=== PATIENT | male | born 1955 | race Two or more races ===

== ENCOUNTER 2019-10-28 17:01 | Emergency (ER) | payer BC ==
[~2019-10-28] VITALS: Ht 165.1 cm; Wt 88.5 kg
[2019-10-28 17:34] VITALS: BP 166/91
== END 2019-10-28 17:43 | disposition home or self-care (01) ==
LOC: ER 17:01
DX: R00.2 Palpitations (principal); I10 Essential (primary) hypertension
CPT/HCPCS: 93005

== ENCOUNTER 2021-12-11 08:05 | Emergency (ER) | payer OTHER ==
[~2021-12-11] VITALS: Ht 165.1 cm; Wt 89.4 kg
[2021-12-11] MEDS ORDERED: methylPREDNISolone SOD SUCC 125 MG/2 ML VL IV ONE (08:45)
[2021-12-11 08:57] LABS: Urine WBC None Seen /hpf (0 - 3)
[2021-12-11 09:09] LABS: Basophils # (auto) 0.1 10 ^3/uL (0-0.2); Basophils % (auto) 0.8 % (0.0-2.0); Eosinophils # (auto) 0.1 10 ^3/uL (0-0.8); Eosinophils % (auto) 1.8 % (0.0-7.0); Hematocrit 43.4 % (41.0-53.0); Hemoglobin 15.3 g/dL (13.5-17.5); Lymphocytes # (auto) 1.6 10 ^3/uL (0.4-5.4); Lymphocytes % (auto) 22.6 % (10.0-50.0); Mean Corpuscular Hemoglobin 29.8 pg (28.0-32.0); Mean Corpuscular Hgb Conc. 35.3 g/dL (32.0-36.0); Mean Corpuscular Volume 84.4 fL (80.0-100.0); Monocytes # (auto) 0.7 10 ^3/uL (0-1.3); Monocytes % (auto) 9.8 % (0.0-12.0); Neutrophils # (auto) 4.6 10 ^3/uL (1.6-8.6); Nucleated Red Blood Cells % 0.1 %; Red Blood Cells 5.14 10^6/uL (4.5-5.90)
[2021-12-11 09:15] LABS: Urine Bacteria NONE SEEN /hpf (None Seen); Urine Blood Negative /uL (Negative); Urine Specific Gravity 1.004 (1.001-1.035)
[2021-12-11 10:16] LABS: Potassium 3.3 mmol/L (3.5-5.1)
[2021-12-11 10:26] LABS: Albumin 3.7 g/dL (3.4-5.0); Calcium 8.6 mg/dL (8.5-10.1); Magnesium 2.2 mg/dL (1.6-2.6)
[2021-12-11 10:28] LABS: BUN/Creatinine Ratio 7.9; Bilirubin, Total 0.6 mg/dL (0.2-1.0); Total Protein 7.4 g/dL (6.4-8.2)
[2021-12-11] MEDS ORDERED: POTASSIUM EFFERVESENT TAB 25 MEQ PO ONE (12:00)
[2021-12-11] MEDS ORDERED: MECL1TAB42 PO (15:57)
[2021-12-11 16:09] VITALS: BP 124/75
== END 2021-12-11 15:54 | disposition home or self-care (01) ==
LOC: ER 08:05
DX: H81.10 Benign paroxysmal vertigo, unspecified ear (principal)
CPT/HCPCS: 36415; 71046; 80053; 81001; 83735; 84443; 84484; 85025; 93005

== ENCOUNTER 2024-12-25 10:21 | Inpatient (IN) | payer OTHER ==
[~2024-12-25] VITALS: Ht 165.1 cm; Wt 88.2 kg
[~2024-12-25 10:21] MED LIST: MECL1TAB42 PO
--- NOTE | 2024-12-25 10:39 | ECG ---
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
--- NOTE | 2024-12-25 10:53 | ED.PDOC ---
GI ASSESSMENT HPI Comments 69 y.o male with PMHx of HTN, Gastritis, colitis, GERD, and BPH, presents to the ED for a chief complaint of left sided abdominal pain with intermittent episodes of diarrhea. Patient reports ongoing abdominal pain due to his gastrointestinal diagnoses but states for the past 3 days, he has experienced increased and worsening pain that went from a 3/10 to an 8/10 on the pain scale. Patient reports some nausea, vomiting and diarrhea a couple days ago but denies any recent episodes. Patient also denies fever, chills, bloody stool, or recent abdominal trauma. He denies substance, alcohol or tobacco use. Chief Complaint: Abdominal Pain Time Seen by MD: 10:41 Primary Care Provider: REJI Reviewed Notes: Nurses Notes, Medications, Allergies Allergies: Coded Allergies: NO KNOWN ALLERGIES (Unverified , 11/10/15) Home Meds Active Scripts Meclizine HCl (Meclizine 25) 25 Mg Tab, 25 MG PO TID for 10 Days, #30 TAB Prov:KATIA OWEN MD 12/11/21 Information Source: Patient Mode of Arrival: Ambulatory Timing: Days (3) Duration: Since onset Quality: Aching, Sharp Vomitus: None Stool: Loose Severity: Moderate Recent: None Recent Hx of: None Pain Location: LUQ, LLQ Modifying Factors: Nothing Associated sign and symptoms: Abdominal Pain Past Medical History PAST MEDICAL HISTORY: GERD, HTN Past Medical History (Other): Gastritis, colitis, BPH Surgical History: Denies all surgeries Family History Family History: Family hx of heart jac Family History (Other): Alzheimers Social History Smoker: Non-Smoker Alcohol: Denies ETOH Use Drugs: Denies Drug Use Lives In: Home Constitutional: denies: chills, diaphoresis, fatigue, fever, malaise, sweats, weakness, others EENTM: denies: blurred vision, double vision, ear bleeding, ear discharge, ear drainage, ear pain, ear ringing, eye pain, eye redness, hearing loss, mouth pain, mouth swelling, nasal discharge, nose bleeding, nose congestion, nose pain, photophobia, tearing, throat pain, throat swelling, voice changes, others Respiratory: denies: cough, hemoptysis, orthopnea, SOB at rest, shortness of breath, SOB with excertion, stridor, wheezing, others Cardiovascular: denies: chest pain, dizzy spells, diaphoresis, Dyspnea on exertion, edema, irregular heart beat, left arm pain, lightheadedness, palpitations, PND, syncope, others Gastrointestinal: reports: abdominal pain, diarrhea; denies: abdomen distended, blood streaked bowels, constipated, dysphagia, difficulty swallowing, hematemesis, melena, nausea, poor appetite, poor fluid intake, rectal bleeding, rectal pain, vomiting, others Genitourinary: denies: burning, dysuria, flank pain, frequency, hematuria, incontinence, penile discharge, penile sore, pain, testicle pain, testicle swelling, urgency, others Neurological: denies: dizziness, fainting, headache, left sided numbness, left sided weakness, numbness, paresthesia, pre-existing deficit, right sided numbness, right sided weakness, seizure, speech problems, tingling, tremors, weakness, others Musculoskeletal: denies: back pain, gout, joint pain, joint swelling, muscle pa in, muscle stiffness, neck pain, others Integumetry: denies: bruises, change in color, change in hair/nails, dryness, laceration, lesions, lumps, rash, wounds, others Allergic/Immunocompromised: denies: Difficulty Healing, Frequent Infections, Hives, Itching, others Hematologic/Lymphatic: denies: anemia, blood clots, easy bleeding, easy bruising, swollen glands, others Endocrine: denies: excessive hunger, excessive sweating, excessive thirst, excessive urination, flushing, intolerance to cold, intolerance to heat, unexplained weight gain, unexplained weight loss, others Psychiatric: denies: anxiety, bipolar disorder, depression, hopeless, panic disorder, schizophrenia, sleepless, suicidal, others All Other Systems: Reviewed and Negative Physical Exam General Appearance: Moderate Distress, Obese HEENT: Normal ENT Inspection, Pharynx Normal, TMs Normal Neck: Full Range of Motion, Non-Tender, Normal, Normal Inspection Respiratory: Chest Non-Tender, Lungs Clear, No Accessory Muscle Use, No Respiratory Distress, Normal Breath Sounds Cardiovascular: No Edema, No JVD, No Murmur, No Gallop, Normal Peripheral Pulses, Regular Rate/Rhythm Breast Exam: Deferred Gastrointestinal: LLQ, No Organomegaly, No Pulsatile Mass, Normal Bowel Sounds, Soft, Tenderness Genitalia: Deferred Pelvic: Deferred Rectal: Deferred Extremities: No calf tenderness, Normal capillary refill, Normal inspection, Normal range of motion, Non-tender, No pedal edema Musculoskeletal : Apperance: Normal Neurologic: Alert, kiss mixer II-XII nml as Tested, No Motor Deficits, Normal Affect, Normal Mood, No Sensory Deficits Cerebellar Function: Normal Reflexes: Normal Skin: Dry, Normal Color, Warm Lymphatic: No Adenopathy EKG EKG : Pulse Rate (adult): 86 Cardiac Rhythm: NSR Was a procedure done? Was a procedure done?: No GI differential Dx Differential Diagnosis: Diverticular disease, Esophagitis, Gastroenteritis, Inflammatory BD, Dehydration, Electrolyte Imbalance, Viral X-Ray, Labs, Meds, VS Vital Signs Date Time Temp Pulse Resp B/P (MAP) Pulse Ox O2 Delivery O2 Flow Rate FiO2 12/25/24 10:53 83 16 96 Room Air 12/25/24 10:53 97.9 83 16 136/96 (109) 96 97.9 12/25/24 10:53 83 12/25/24 10:34 97.6 86 18 134/78 (96) 98 97.6 12/25/24 10:31 86 Lab Test 12/25/24 11:14 12/25/24 10:31 Range/Units White Blood Count 6.6 4.4-10.8 10^3/uL Red Blood Count 5.34 4.5-5.90 10^6/uL Hemoglobin 16.0 13.5-17.5 g/dL Hematocrit 45.4 41.0-53.0 % Mean Corpuscular Volume 85.1 80.0-100.0 fL Mean Corpuscular Hemoglobin 30.0 28.0-32.0 pg Mean Corpuscular Hemoglobin Concent 35.2 32.0-36.0 g/dL Red Cell Distribution Width 13.0 11.8-14.3 % Platelet Count 212 140-450 10^3/uL Mean Platelet Volume 7.8 6.9-10.8 fL Neutrophils (%) (Auto) 80.5 H 37.0-80.0 % Lymphocytes (%) (Auto) 10.3 10.0-50.0 % Monocytes (%) (Auto) 8.1 0.0-12.0 % Eosinophils (%) (Auto) 0.7 0.0-7.0 % Basophils (%) (Auto) 0.4 0.0-2.0 % Neutrophils # (Auto) 5.3 1.6-8.6 10 ^3/uL Lymphocytes # (Auto) 0.7 0.4-5.4 10 ^3/uL Monocytes # (Auto) 0.5 0-1.3 10 ^3/uL Eosinophils # (Auto) 0 0-0.8 10 ^3/uL Basophils # (Auto) 0 0-0.2 10 ^3/uL Nucleated Red Blood Cells 0.0 % Sodium Level 136 136-145 mmol/L Potassium Level 3.2 L 3.5-5.1 mmol/L Chloride Level 97 L 98-107 mmol/L Carbon Dioxide Level 30 20-31 mmol/L Anion Gap 9 5-15 Blood Urea Nitrogen 6 L 9-23 mg/dL Creatinine 0.86 0.700-1.30 mg/dL Glomerular Filtration Rate Calc 94 >90 mL/min BUN/Creatinine Ratio 7.0 L 10.0-20.0 Serum Glucose 191 H 74-106 mg/dL Calcium Level 9.5 8.7-10.4 mg/dL Total Bilirubin 3.1 H 0.2-1.0 mg/dL Aspartate Amino Transferase (AST) 517 H 13-40 U/L Alanine Aminotransferase (ALT) 433 H 7-40 U/L Alkaline Phosphatase 137 H 46-116 U/L Total Protein 6.8 5.7-8.2 g/dL Albumin 4.4 3.2-4.8 g/dL Lipase Pending Urine Color Yellow Yellow Urine Clarity Clear Clear Urine pH 8.5 5.0-9.0 Urine Specific [place] 1.012 1.001-1.035 Urine Protein Negative Negative Urine Ketones Negative Negative Urine Blood Negative Negative /uL Urine Nitrite Negative Negative Urine Bilirubin Negative Negative Urine Urobilinogen Normal Negative mg/dL Urine Leukocyte Esterase Negative Negative /uL Urine RBC <1 0 - 3 /hpf Urine Microscopic WBC 0-3 /HPF Urine Squamous Epithelial Cells None seen <5 /hpf Urine Bacteria None seen None Seen /hpf Urine Glucose 1+ H Normal mg/dL Scan of the abdomen and pelvis is negative The liver enzymes are all elevated as well as a total bilirubin of 3.1 The lipase is pending The CBC is within normal limits. The potassium is somewhat decreased at 3.2 The patient will be admitted with a diagnosis of abdominal pain unknown etiology The liver enzymes are also elevated The patient is admitted at this time Images Reviewed?: Images reviewed and evaluated by me Time of 1ST Reevaluation: 10:53 Reevaluation 1ST: Unchanged Patient Education/Counseling: Diagnosis, Treatment, Prognosis Family Education/Counseling: No Family Present Departure 1 Departure Time of Disposition: 12:15 Impression: Primary Impression: Intractable abdominal pain Additional Impressions: Elevated liver enzymes Hypokalemia Abdominal pain of unknown etiology Disposition: ADMITTED INPATIENT Admit to: Med Surg Condition: Fair Critical Care Note Critical Care Time?: No Stability Stability form required: Yes Unstable for transfer: ED Physician Assesment (Clinical assesment) Heart Score Heart Score: Heart Score Response (Comments) Value History N/A 0 EKG N/A 0 Age N/A 0 Risk Factors N/A 0 Troponin N/A 0 Total 0 I personally scribed for PENNY YEPEZ MD ([email or web address]) on 12/25/24 at 10:53. Electronically submitted by Genoveva Jones ([facility]). PENNY YEPEZ MD December 25, 2024 10:53
[2024-12-25 11:02] LABS: Urine Bacteria None Seen /hpf (None Seen)
[2024-12-25 11:39] LABS: Urine Blood Negative /uL (Negative); Urine Clarity Clear (Clear); Urine Color Yellow (Yellow); Urine Protein, UAD Negative (Negative); Urine Specific Gravity 1.012 (1.001-1.035); Urine Squamous Epithelial Cell None Seen /hpf (<5); Urine Urobilinogen Normal (Negative); Urine pH 8.5 (5.0-9.0)
--- NOTE | 2024-12-25 11:44 | DVH ---
CT CT AB PEL WO CON-NO ORAL OR IV INDICATION: llq pain EXAM DATE: 12/25/2024 10:59 AM COMPARISON: None RADIATION DOSE: CTDIvol: 14.88 mGy, DLP: 866.67 mGy*cm PROCEDURE: Helical CT images were obtained of the abdomen and pelvis without IV contrast Sagittal and coronal reconstructions are provided. ORAL CONTRAST: None. ADDITIONAL IMAGES / REFORMATS: None All C T scans at this medical facility are performed using dose modulation techniques as appropriate to a p erformed exam including the following: Automated exposure control was utilized; adjustment of the MA and/or KV according to patient size; and use of iterative reconstruction technique. FINDINGS: LUNG BASE: Normal. LIVER: Normal. GALLBLADDER AND BILIARY TREE: No calcified gallstones. Normal caliber wall. No intra- or extrahepatic biliary ductal dilation. PANCREAS: Normal. SPLEEN: Normal. BOWEL: Normal. Normal appendix. ADRENALS: Normal. KIDNEYS AND URETER: Normal. BLADDER: Normal. REPRODUCTIVE ORGANS: Normal. LYMPH NODES:No lymphadenopathy. PERITONEUM: No ascites or free air. No other fluid collection. VESSELS: Scattered atherosclerotic calcifications are noted. RETROPERITONEUM: Normal. ABDOMINAL WALL: Normal. BONES: Scattered osseous degenerative changes are noted. IMPRESSION: No acute intraabdominal abnormality.
[2024-12-25 11:46] LABS: Basophils # (auto) 0 10 ^3/uL (0-0.2); Basophils % (auto) 0.4 % (0.0-2.0); Eosinophils # (auto) 0 10 ^3/uL (0-0.8); Eosinophils % (auto) 0.7 % (0.0-7.0); Hematocrit 45.4 % (41.0-53.0); Lymphocytes # (auto) 0.7 10 ^3/uL (0.4-5.4); Lymphocytes % (auto) 10.3 % (10.0-50.0); Mean Corpuscular Hgb Conc. 35.2 g/dL (32.0-36.0); Mean Corpuscular Volume 85.1 fL (80.0-100.0); Monocytes # (auto) 0.5 10 ^3/uL (0-1.3); Monocytes % (auto) 8.1 % (0.0-12.0); Neutrophils # (auto) 5.3 10 ^3/uL (1.6-8.6); Neutrophils % (auto) 80.5 % (37.0-80.0); Platelet Count (auto) 212 10^3/uL (140-450); Red Blood Cells 5.34 10^6/uL (4.5-5.90); White Blood Cell 6.6 10^3/uL (4.4-10.8)
[2024-12-25 12:03] LABS: Albumin 4.4 g/dL (3.2-4.8); Anion Gap 9 (5-15); Calcium 9.5 mg/dL (8.7-10.4); Carbon Dioxide 30 mmol/L (20-31); Sodium 136 mmol/L (136-145); Total Protein 6.8 g/dL (5.7-8.2)
[2024-12-25 12:04] LABS: Alanine Aminotransferase 433 U/L (7-40); Alkaline Phosphatase 137 U/L (46-116); Aspartate Aminotransferase 517 U/L (13-40); Bilirubin, Total 3.1 mg/dL (0.2-1.0); Blood Urea Nitrogen 6 mg/dL (9-23); Chloride 97 mmol/L (98-107); Glucose 191 mg/dL (74-106); Potassium 3.2 mmol/L (3.5-5.1)
[2024-12-25 12:19] LABS: Lipase 41 U/L (12-53)
--- NOTE | 2024-12-25 16:08 | DVHHP2 ---
Admitting Diagnosis: Abdominal pain History of Present Illness 69 y.o male with PMHx of HTN, Gastritis, colitis, GERD, and BPH, presents to the ED for a chief complaint of left sided abdominal pain with intermittent episodes of diarrhea. Patient reports ongoing abdominal pain due to his gastrointestinal diagnoses but states for the past 3 days, he has experienced increased and worsening pain that went from a 3/10 to an 8/10 on the pain scale. Patient reports some nausea, vomiting and diarrhea a couple days ago but denies any recent episodes. Patient also denies fever, chills, bloody stool, or recent abdominal trauma. He denies substance, alcohol or tobacco use. PAST MEDICAL HISTORY: GERD, HTN Past Medical History (Other): Gastritis, colitis, BPH Surgical History: Denies all surgeries Family History Family History: Family hx of heart jac Family History (Other): Alzheimers Social History Smoker: Non-Smoker Alcohol: Denies ETOH Use Drugs: Denies Drug Use Lives In: Home Allergies: Coded Allergies: NO KNOWN ALLERGIES (Unverified , 11/10/15) Home Meds Active Scripts Meclizine HCl (Meclizine 25) 25 Mg Tab, 25 MG PO TID for 10 Days, #30 TAB Prov:KATIA OWEN MD 12/11/21 Vital Signs Vital Signs Date Time Temp Pulse Resp B/P (MAP) Pulse Ox O2 Delivery O2 Flow Rate FiO2 12/25/24 15:31 97.7 82 16 143/92 (109) 98 97.7 12/25/24 10:53 Room Air Physical Exam Generally 61 years old male overweight, sitting on chair. No apparent distress HEENT-atraumatic, normocephalic Heart-regular rate and rhythm Lungs clear to auscultate bilaterally Abdomen soft nontender nondistended Musculoskeletal-no edema cyanosis Neuro-AO x3, no focal Results Labs Test 12/25/24 11:14 12/25/24 10:31 Range/Units White Blood Count 6.6 4.4-10.8 10^3/uL Red Blood Count 5.34 4.5-5.90 10^6/uL Hemoglobin 16.0 13.5-17.5 g/dL Hematocrit 45.4 41.0-53.0 % Mean Corpuscular Volume 85.1 80.0-100.0 fL Mean Corpuscular Hemoglobin 30.0 28.0-32.0 pg Mean Corpuscular Hemoglobin Concent 35.2 32.0-36.0 g/dL Red Cell Distribution Width 13.0 11.8-14.3 % Platelet Count 212 140-450 10^3/uL Mean Platelet Volume 7.8 6.9-10.8 fL Neutrophils (%) (Auto) 80.5 H 37.0-80.0 % Lymphocytes (%) (Auto) 10.3 10.0-50.0 % Monocytes (%) (Auto) 8.1 0.0-12.0 % Eosinophils (%) (Auto) 0.7 0.0-7.0 % Basophils (%) (Auto) 0.4 0.0-2.0 % Neutrophils # (Auto) 5.3 1.6-8.6 10 ^3/uL Lymphocytes # (Auto) 0.7 0.4-5.4 10 ^3/uL Monocytes # (Auto) 0.5 0-1.3 10 ^3/uL Eosinophils # (Auto) 0 0-0.8 10 ^3/uL Basophils # (Auto) 0 0-0.2 10 ^3/uL Nucleated Red Blood Cells 0.0 % Sodium Level 136 136-145 mmol/L Potassium Level 3.2 L 3.5-5.1 mmol/L Chloride Level 97 L 98-107 mmol/L Carbon Dioxide Level 30 20-31 mmol/L Anion Gap 9 5-15 Blood Urea Nitrogen 6 L 9-23 mg/dL Creatinine 0.86 0.700-1.30 mg/dL Glomerular Filtration Rate Calc 94 >90 mL/min BUN/Creatinine Ratio 7.0 L 10.0-20.0 Serum Glucose 191 H 74-106 mg/dL Calcium Level 9.5 8.7-10.4 mg/dL Total Bilirubin 3.1 H 0.2-1.0 mg/dL Aspartate Amino Transferase (AST) 517 H 13-40 U/L Alanine Aminotransferase (ALT) 433 H 7-40 U/L Alkaline Phosphatase 137 H 46-116 U/L Total Protein 6.8 5.7-8.2 g/dL Albumin 4.4 3.2-4.8 g/dL Lipase 41 12-53 U/L Urine Color Yellow Yellow Urine Clarity Clear Clear Urine pH 8.5 5.0-9.0 Urine Specific [place] 1.012 1.001-1.035 Urine Protein Negative Negative Urine Ketones Negative Negative Urine Blood Negative Negative /uL Urine Nitrite Negative Negative Urine Bilirubin Negative Negative Urine Urobilinogen Normal Negative mg/dL Urine Leukocyte Esterase Negative Negative /uL Urine RBC <1 0 - 3 /hpf Urine Microscopic WBC 0-3 /HPF Urine Squamous Epithelial Cells None seen <5 /hpf Urine Bacteria None seen None Seen /hpf Urine Glucose 1+ H Normal mg/dL Primary Diagnosis Abdominal pain likely due to acute gastritis Elevated LFT hypokalemia Plan Patient says no abdominal pain only after having a meal Pepcid 10 mg b.i.d. Protonix daily Ultrasound abdomen to assess for hepatic steatosis versus obstruction Pain control IV fluids Replete potassium Full code Lovenox for DVT prophylaxis PPI for GI prophylaxis Regular diet Plan discussed with: Patient Problems List: (1) Intractable abdominal pain Status: Acute (2) Elevated liver enzymes Status: Acute (3) Hypokalemia Status: Acute Date of Service: December 25, 2024 Billing Provider: LINDA DONALD MD Common Visit Codes: [id number] INP/OBS CARE (MOD) LINDA DONALD MD December 25, 2024 16:08
[2024-12-25] MEDS ORDERED: ONDANSETRON HCL 4 MG/2 ML VIAL IV PRN (16:15)
[2024-12-25] MEDS ORDERED: DOCUSATE SOD 100 MG CAP PO PRN (16:15)
[2024-12-25] MEDS ORDERED: ACETAMINOPHEN 325 MG TAB PO PRN (16:15)
--- NOTE | 2024-12-25 16:42 | DVH ---
INDICATION: elevated lft TECHNIQUE: Ultrasound abdomen limited. Multiple real-time sonographic images of the abdomen were obta ined. COMPARISON: None FINDINGS: Parenchymal changes suggesting steatosis. The liver measures 14.87 cm. No intrahepatic jeffery iary ductal dilatation is noted. The gallbladder wall measures 0. 7 7 cm and is unremarkable. No gallstones or sludge is seen. The common duct measures 0.49 cm and is unremarkable. No pericholecystic fluid is noted. Negative sonogr aphic Troncoso's sign The right kidney measures 10 cm. No hydronephrosis. The pancreas is not well visualized due to obscuration from bowel gas. The visualized portions of the IVC and aorta are grossly unremarkable. IMPRESSION: 1. No cholelithiasis however there is gallbladder wall thickening measuring 7-8 mm. Small amount of p ericholecystic fluid which May account for the thickening of the gallbladder wall. 2. Hepatic steatosis with the liver measuring 14.87 cm HS:Y
[2024-12-25 18:16] VITALS: BP 132/87; PULSE 88; RESP 18; TEMP 98.3; O2SAT 96
[2024-12-25 18:23] VITALS: BP 139/74; PULSE 71; TEMP 98.3; O2SAT 97
[2024-12-25 21:00] VITALS: BP 140/96; PULSE 84; RESP 18; TEMP 98.3; O2SAT 96
[2024-12-26] VITALS (7 sets, daily range): BP systolic 116–156; BP diastolic 89–104; PULSE 59–69; RESP 16–20; TEMP 97.3–98.1; O2SAT 96–98
[2024-12-26] MEDS: SODIUM CHLOR 0.9% PF (SALINE LOCK) 10ML VIAL/SYR IV SCH (00:19)
[2024-12-26] MEDS: FAMOTIDINE (10MG/ML) 2ML VL IV SCH (00:19)
[2024-12-26] MEDS ORDERED: TAMS0.4C39 PO (00:25)
[2024-12-26] MEDS ORDERED: FIN5T PO (00:25)
[2024-12-26] MEDS ORDERED: PANT40T PO (00:25)
[2024-12-26 06:58] LABS: Basophils # (auto) 0 10 ^3/uL (0-0.2); Basophils % (auto) 0.8 % (0.0-2.0); Eosinophils # (auto) 0.1 10 ^3/uL (0-0.8); Eosinophils % (auto) 2.4 % (0.0-7.0); Hematocrit 45.1 % (41.0-53.0); Hemoglobin 15.7 g/dL (13.5-17.5); Lymphocytes % (auto) 16.5 % (10.0-50.0); Mean Corpuscular Hemoglobin 29.8 pg (28.0-32.0); Mean Corpuscular Hgb Conc. 34.9 g/dL (32.0-36.0); Mean Corpuscular Volume 85.5 fL (80.0-100.0); Monocytes # (auto) 0.5 10 ^3/uL (0-1.3); Neutrophils # (auto) 4.5 10 ^3/uL (1.6-8.6); Neutrophils % (auto) 72.3 % (37.0-80.0); Nucleated Red Blood Cells % 0.1 %; Platelet Count (auto) 216 10^3/uL (140-450); Red Blood Cells 5.27 10^6/uL (4.5-5.90); Red Cell Distribution Width 13.4 % (11.8-14.3); White Blood Cell 6.3 10^3/uL (4.4-10.8)
[2024-12-26 07:10] LABS: Anion Gap 10 (5-15); BUN/Creatinine Ratio 7.9 (10.0-20.0); Calcium 9.5 mg/dL (8.7-10.4); Carbon Dioxide 30 mmol/L (20-31); Sodium 137 mmol/L (136-145); Total Protein 6.7 g/dL (5.7-8.2)
[2024-12-26 07:11] LABS: Albumin 4.3 g/dL (3.2-4.8)
[2024-12-26 07:21] LABS: Alanine Aminotransferase 771 U/L (7-40); Alkaline Phosphatase 167 U/L (46-116); Aspartate Aminotransferase 603 U/L (13-40); Bilirubin, Total 2.5 mg/dL (0.2-1.0); Blood Urea Nitrogen 6 mg/dL (9-23); Chloride 97 mmol/L (98-107); Glucose 109 mg/dL (74-106)
[2024-12-26] MEDS: PANTOPRAZOLE 40 MG/10 ML VIAL INJ IV SCH (09:06)
[2024-12-26] MEDS: ENOXAPARIN SOD 40 MG/0.4 ML SYRINGE SC SCH (09:07)
[2024-12-26 10:07] LABS: Hepatitis B Surface Antigen Negative (Negative)
[2024-12-26 10:18] LABS: INR 1.03 (0.9-1.15); Partial Thromboplastin Time 30.2 SEC (24.5-34.5); Prothrombin Time 10.9 sec (9.3-11.8)
[2024-12-26 10:29] LABS: Hepatitis A Ab IgM Negative; Hepatitis B Core IgM Negative (Negative); Hepatitis C Antibody Negative (Negative)
[2024-12-26] MEDS: POTASSIUM EFFERVESENT TAB 25 MEQ PO ONE (10:57)
[2024-12-26] MEDS: LOSARTAN POTASSIUM 25 MG TAB PO SCH (10:57)
--- NOTE | 2024-12-26 12:15 | DVHPNRES ---
Progress Note Date Seen: December 26, 2024 Resident Creating Document: ANTONIA BLACKMANNOE RESIDENT Medical Necessity Reason Pt with a Central, PICC or Fol: No Subjective Review of Systems Patient is a 69-year-old male with a past medical history of hypertensive heart disease, gastritis, GERD, BPH, ?Colitis presented to the ED with a chief complaint of worsening abdominal pain for the last 3 days. Patient reported that for many years he has had pain in the left side of the abdomen mainly in the left lumbar in the left flank mostly after eating he specifically after eating greasy, fried food, meat but in the last 3 days he reported the pain in the left flank of the left lumbar area increased in intensity to about 8/10 associated with nausea, bloating and had 1 episode of vomiting which he induced himself because of feeling bloated. Patient denied diarrhea/constipation, fever, chills. He did not report of any unintentional weight loss recently, no history of travel. He reported that about a week ago he went to a restaurant where he had [place] but otherwise no food outside. Patient reported that he has been scheduled for a colonoscopy in March 2025. Past medical history: hypertensive heart disease, gastritis, GERD, BPH, ?Colitis Person surgical history: None Social history: Patient lives with family and denies smoking, alcohol, drug use Home medications: Losartan 100/hydrochlorothiazide 25, Protonix 40 mg, tamsulosin, finasteride Review of systems Patient seen and examined at the bedside Reports abdominal pain has improved and denies nausea, vomiting Reported last bowel movement was yesterday and it was formed, no diarrhea Objective vital signs Vital Sign Date Time Temp Pulse Resp B/P (MAP) Pulse Ox O2 Delivery O2 Flow Rate FiO2 12/26/24 10:57 155/95 12/26/24 09:13 98.0 67 20 96 98.0 12/26/24 08:00 Room Air* 0 21 medications Current Medications Medications Dose Ordered Sig/Shaji Route Start Time Stop Time Status Last Admin Dose Admin Famotidine 20 mg BID IV 12/25/24 22:00 12/26/24 09:07 20 MG Pantoprazole Sodium 40 mg DAILY IV 12/26/24 10:00 12/26/24 09:06 40 MG Sodium Chloride 10 ml Q8HR IV 12/25/24 22:00 12/26/24 06:44 10 ML Acetaminophen 650 mg Q6HP PRN PO 12/25/24 16:15 Ondansetron HCl 4 mg Q4HP PRN IV 12/25/24 16:15 Enoxaparin Sodium 40 mg DAILY SC 12/26/24 10:00 12/26/24 09:07 40 MG Losartan Potassium 75 mg DAILY PO 12/26/24 10:00 12/26/24 10:57 75 MG Examination Constitutional: patient is alert and oriented to time, place and person and does not appear to be in any acute distress Gen - no pallor, no icterus, no cyanosis, no clubbing, no LAD, no edema . Skin - Patients skin is warm and dry. HEENT - normocephalic, atraumatic, moist mucous membranes. Neck - full ROM, no LAD, no JVD Pulmonary - B/L equal breath sounds, no crackles , no wheezing cardiovascular - Regular S1,S2 heard, no added sounds, no murmurs heard. GI - obese, soft abdomen with point tenderness to palpation in the left lumbar quadrant and left flank. no hepatospleenomegaly. No shifting dullness, Troncoso sign negative. Bowel sounds normoactive Neurological - Bilateral upper extremity strength 5/5, bilateral lower extremity strength 5/5, no facial droop, normal speech, no tremor, no sensory deficiets. laboratory and microbiology Laboratory Tests 12/26/24 05:52 Test 12/26/24 05:52 Range/Units Serum Glucose 109 H 74-106 mg/dL Problem List/Assessment/Plan Problem List/Assessment/Plan Acute on chronic abdominal pain Possible Acute gastritis Elevated transaminases with hepatic steatosis Hyperbilirubinemia Possible acalculous cholecystitis Constipation - right upper quadrant ultrasound showed no cholelithiasis on gallbladder wall thickening measuring 7-8 mm, small amount of pericholecystic fluid and hepatic steatosis - CT abdominal and pelvis shows no acute intra-abdominal abnormality - acute hepatitis panel negative - NOVA screen and ferritin pending - alcohol and acetaminophen levels WNL - Protonix and Carafate - MiraLax and senna Hypertensive heart disease On losartan and nifedipine DVT prophylaxis: Lovenox PUD prophylaxis: Protonix Goals of care discussed with the patient for over 29 minutes. Full code Plan discussed with Dr. Palacio Plan discussed with: Patient My Orders My Orders Orders - JHAJJ,SARPUNEET RESIDENT Procedure Category Date Status Time Losartan Tablet PHA 12/26/24 In Process (Cozaar Tablet) 10:00 Full Liq Diet DIET 12/26/24 Transmitted Lunch Date of Service: December 26, 2024 Billing Provider: MIKE PALACIO MD Common Visit Codes: [id number] INP/OBS CARE(HIGH) EVELYN BLACKMAN RESIDENT December 26, 2024 12:15 MIKE PALACIO MD December 27, 2024 22:52
[2024-12-26] MEDS ORDERED: POLYETHYLENE GLYCOL 17 GM PWDR PO PRN (12:30)
[2024-12-26 13:01] LABS: Triglycerides 95 mg/dL (< 150)
[2024-12-26 13:03] LABS: Cholesterol 189 mg/dL (< 200); HDL Cholesterol 55 mg/dL (40-59)
[2024-12-26 13:06] LABS: LDL Cholesterol 115 mg/dL (< 100)
[2024-12-26 13:07] LABS: Blood Alcohol < 3.0 mg/dL (<10)
[2024-12-26] MEDS: SENNA 8.6 MG TAB PO ONE (13:07)
[2024-12-26] MEDS: POLYETHYLENE GLYCOL 17 GM PWDR PO ONE (13:07)
--- NOTE | 2024-12-26 14:53 | DVH ---
CHEST RADIOGRAPH Indication: SOB Technique: Single frontal view of the chest was obtained Comparison: None FINDINGS: Lines and Tubes: None Lungs: No focal consolidation. Pleura: No effusion. No pneumothorax. Cardiomediastinal contours: Unremarkable Bones: No acute osseous abnormality. IMPRESSION: 1. No acute cardiopulmonary disease.
--- NOTE | 2024-12-26 15:30 | DVHINCON2 ---
Date of service: December 26, [address] Calderon Reason for Consultation Elevated liver tests History of Present Illness Patient is a 69-year-old male with a past medical history of HTN, gastritis, GERD, BPH, ?Colitis presented to the ED with a chief complaint of worsening abdominal pain for the last 3 days. Patient reported that for many years he has had pain in the left side of the abdomen mainly in the left lumbar in the left flank mostly after eating he specifically after eating greasy, fried food, meat but in the last 3 days he reported the pain in the left flank of the left lumbar area increased in intensity to about 8/10 associated with nausea, bloating and had 1 episode of vomiting which he induced himself because of feeling bloated. Patient denied diarrhea/constipation, fever, chills. He did not report of any unintentional weight loss recently, no history of travel. He reported that about a week ago he went to a restaurant where he had [place] but otherwise no food outside. Patient reported that he has been scheduled for a colonoscopy in March 2025. Past Medical History Past medical history: hypertensive heart disease, gastritis, GERD, BPH, ?Colitis Past Surgical History Person surgical history: None Family History: Alzheimer's disease G8 MOTHER Social History Social history: Patient lives with family and denies smoking, alcohol, drug use Allergies: Coded Allergies: NO KNOWN ALLERGIES (Unverified , 11/10/15) Home Meds Active Scripts Meclizine HCl (Meclizine 25) 25 Mg Tab, 25 MG PO TID for 10 Days, #30 TAB Prov:KATIA OWEN MD 12/11/21 Reported Medications Tamsulosin Hcl (Tamsulosin Hcl) 0.4 Mg Cap, 2 CAP PO DAILY 12/26/24 Finasteride (Finasteride) 5 Mg Tab, 1 TAB PO DAILY 12/26/24 Pantoprazole Sodium Sesquihydr (Pantoprazole Sodium) 40 Mg Tab, 1 TAB PO BID 12/26/24 Current Medications Current Medications Medications (Trade) Dose Ordered Sig/Shaji Route PRN Reason Start Time Stop Time Status Last Admin Famotidine (Pepcid Injection) 20 mg BID IV 12/25/24 22:00 12/26/24 12:34 DC 12/26/24 09:07 Pantoprazole Sodium (Protonix) 40 mg DAILY IV 12/26/24 10:00 12/26/24 09:06 Sodium Chloride (Saline Lock Ns) 10 ml Q8HR IV 12/25/24 22:00 12/26/24 14:15 Docusate Sodium (Colace Capsule) 100 mg BIDPRN PRN PO FOR CONSTIPATION 12/25/24 16:15 12/26/24 09:46 DC Acetaminophen (Tylenol Tablet) 650 mg Q6HP PRN PO PAIN SCALE 1-3 OR TEMP>100.4 12/25/24 16:15 Ondansetron HCl (Zofran) 4 mg Q4HP PRN IV NAUSEA / VOMITING 12/25/24 16:15 Enoxaparin Sodium (Lovenox) 40 mg DAILY SC 12/26/24 10:00 12/26/24 09:07 Losartan Potassium (Cozaar Tablet) 75 mg DAILY PO 12/26/24 10:00 12/26/24 10:57 Polyethylene Glycol (Miralax 17GM Powder) 17 gm DAILYPRN PRN PO FOR CONSTIPATION 12/26/24 12:30 Sennosides (Senokot Tablet) 8.6 mg HS PO 12/26/24 22:00 12/26/24 12:56 DC Sennosides (Senokot Tablet) 8.6 mg HS PO 12/27/24 22:00 Home medications: Losartan 100/hydrochlorothiazide 25, Protonix 40 mg, tamsulosin, finasteride Vital Signs Vital Signs Date Time Temp Pulse Resp B/P (MAP) Pulse Ox O2 Delivery O2 Flow Rate FiO2 12/26/24 13:00 97.3 59 17 150/92 (111) 96 97.3 12/26/24 08:00 Room Air* 0 21 Physical Exam Generally 61 years old male overweight, sitting on chair. No apparent distress HEENT-atraumatic, normocephalic Heart-regular rate and rhythm Lungs clear to auscultate bilaterally Abdomen soft nontender nondistended Musculoskeletal-no edema cyanosis Neuro-AO x3, no focal Labs/Diagnostic Data Labs Test 12/26/24 14:24 12/26/24 10:00 12/26/24 05:52 12/25/24 11:14 Range/Units Prothrombin Time 10.9 9.3-11.8 sec Prothrombin Time INR 1.03 0.9-1.15 Activated Partial Thromboplast Time 30.2 24.5-34.5 SEC White Blood Count 6.3 4.4-10.8 10^3/uL Red Blood Count 5.27 4.5-5.90 10^6/uL Hemoglobin 15.7 13.5-17.5 g/dL Hematocrit 45.1 41.0-53.0 % Mean Corpuscular Volume 85.5 80.0-100.0 fL Mean Corpuscular Hemoglobin 29.8 28.0-32.0 pg Mean Corpuscular Hemoglobin Concent 34.9 32.0-36.0 g/dL Red Cell Distribution Width 13.4 11.8-14.3 % Platelet Count 216 140-450 10^3/uL Mean Platelet Volume 8.0 6.9-10.8 fL Neutrophils (%) (Auto) 72.3 37.0-80.0 % Lymphocytes (%) (Auto) 16.5 10.0-50.0 % Monocytes (%) (Auto) 8.0 0.0-12.0 % Eosinophils (%) (Auto) 2.4 0.0-7.0 % Basophils (%) (Auto) 0.8 0.0-2.0 % Neutrophils # (Auto) 4.5 1.6-8.6 10 ^3/uL Lymphocytes # (Auto) 1.0 0.4-5.4 10 ^3/uL Monocytes # (Auto) 0.5 0-1.3 10 ^3/uL Eosinophils # (Auto) 0.1 0-0.8 10 ^3/uL Basophils # (Auto) 0 0-0.2 10 ^3/uL Nucleated Red Blood Cells 0.1 % Sodium Level 137 136-145 mmol/L Potassium Level 3.0 L 3.5-5.1 mmol/L Chloride Level 97 L 98-107 mmol/L Carbon Dioxide Level 30 20-31 mmol/L Anion Gap 10 5-15 Blood Urea Nitrogen 6 L 9-23 mg/dL Creatinine 0.76 0.700-1.30 mg/dL Glomerular Filtration Rate Calc 98 >90 mL/min BUN/Creatinine Ratio 7.9 L 10.0-20.0 Serum Glucose 109 H 74-106 mg/dL Hemoglobin A1c 5.5 <5.7 % A1C Calcium Level 9.5 8.7-10.4 mg/dL Total Bilirubin 2.5 H 0.2-1.0 mg/dL Direct Bilirubin 1.2 H <0.3 mg/dL Aspartate Amino Transferase (AST) 603 H 13-40 U/L Alanine Aminotransferase (ALT) 771 H 7-40 U/L Alkaline Phosphatase 167 H 46-116 U/L Total Protein 6.7 5.7-8.2 g/dL Albumin 4.3 3.2-4.8 g/dL Triglycerides Level 95 < 150 mg/dL Cholesterol Level 189 < 200 mg/dL LDL Cholesterol 115 H < 100 mg/dL HDL Cholesterol 55 40-59 mg/dL Thyroid Stimulating Hormone (TSH) 1.15 0.55-4.78 uIU/mL Acetaminophen Level < 2.0 L 10.0-20.0 UG/ML Plasma/Serum Blood Alcohol < 3.0 <10 mg/dL Hepatitis A IgM Antibody Negative Hepatitis B Surface Antigen Negative Negative Hepatitis B Core IgM Antibody Negative Negative Hepatitis C Antibody Negative Negative Lipase 41 12-53 U/L Test 12/25/24 10:31 Range/Units Urine Color Yellow Yellow Urine Clarity Clear Clear Urine pH 8.5 5.0-9.0 Urine Specific [place] 1.012 1.001-1.035 Urine Protein Negative Negative Urine Ketones Negative Negative Urine Blood Negative Negative /uL Urine Nitrite Negative Negative Urine Bilirubin Negative Negative Urine Urobilinogen Normal Negative mg/dL Urine Leukocyte Esterase Negative Negative /uL Urine RBC <1 0 - 3 /hpf Urine Microscopic WBC 0-3 /HPF Urine Squamous Epithelial Cells None seen <5 /hpf Urine Bacteria None seen None Seen /hpf Urine Glucose 1+ H Normal mg/dL Liver USG IMPRESSION: 1. No cholelithiasis however there is gallbladder wall thickening measuring 7-8 mm. Small amount of pericholecystic fluid which May account for the thickening of the gallbladder wall. 2. Hepatic steatosis with the liver measuring 14.[address] SCAN ABD PELVIS Negative Problems(with codes): (1) Intractable abdominal pain (2) Abdominal pain of unknown etiology (3) Elevated liver enzymes (4) Hypokalemia Plan/Recommendation Plan NOVA is pending, hepatitis profile negative, serum ferritin ordered Protonix 40 mg IV daily Carafate 1 g p.o. twice a day DC aspirin NSAIDs smoking alcohol If the patient has diarrhea we will arrange some stool tests including stool for occult blood and WBC Clear liquid diet advance as tolerated I will evaluate this patient for a possible EGD pending his clinical progress Patient is scheduled for outpatient elective colonoscopy in March Plan discussed with: Other (None) DUANE GUEVARA MD December 26, 2024 15:30
[2024-12-26] MEDS: NIFEdipine ER 30 MG TAB PO ONE (16:36)
[2024-12-26] MEDS: SUCRALFATE 1 GM/10 ML ORAL SUSP PO SCH (21:02)
[2024-12-26] MEDS ORDERED: SENNA 8.6 MG TAB PO SCH (22:00)
[2024-12-27 01:04] VITALS: BP 119/81; PULSE 63; RESP 14; TEMP 98.2; O2SAT 95
[2024-12-27 05:00] VITALS: BP 124/74; PULSE 62; RESP 17; TEMP 97.4; O2SAT 96
[2024-12-27 06:13] LABS: Basophils # (auto) 0.1 10 ^3/uL (0-0.2); Basophils % (auto) 0.9 % (0.0-2.0); Eosinophils # (auto) 0.2 10 ^3/uL (0-0.8); Eosinophils % (auto) 2.6 % (0.0-7.0); Hematocrit 45.9 % (41.0-53.0); Lymphocytes # (auto) 1.8 10 ^3/uL (0.4-5.4); Lymphocytes % (auto) 29.7 % (10.0-50.0); Mean Corpuscular Hemoglobin 30.1 pg (28.0-32.0); Monocytes # (auto) 0.4 10 ^3/uL (0-1.3); Monocytes % (auto) 7.2 % (0.0-12.0); Neutrophils # (auto) 3.5 10 ^3/uL (1.6-8.6); Neutrophils % (auto) 59.6 % (37.0-80.0); Platelet Count (auto) 214 10^3/uL (140-450); Red Blood Cells 5.33 10^6/uL (4.5-5.90); Red Cell Distribution Width 13.4 % (11.8-14.3); White Blood Cell 5.9 10^3/uL (4.4-10.8)
[2024-12-27 06:37] LABS: Anion Gap 9 (5-15); BUN/Creatinine Ratio 7.1 (10.0-20.0); Calcium 9.7 mg/dL (8.7-10.4); Glucose 100 mg/dL (74-106); Potassium 3.6 mmol/L (3.5-5.1); Sodium 137 mmol/L (136-145); Total Protein 6.7 g/dL (5.7-8.2)
[2024-12-27 06:38] LABS: Albumin 4.3 g/dL (3.2-4.8)
[2024-12-27 06:39] LABS: Alanine Aminotransferase 509 U/L (7-40); Alkaline Phosphatase 147 U/L (46-116); Aspartate Aminotransferase 186 U/L (13-40); Bilirubin, Total 1.7 mg/dL (0.2-1.0); Blood Urea Nitrogen 5 mg/dL (9-23); Carbon Dioxide 31 mmol/L (20-31); Chloride 97 mmol/L (98-107)
[2024-12-27 09:00] VITALS: BP 124/85; PULSE 73; RESP 16; TEMP 97.5; O2SAT 94
[2024-12-27] MEDS: LOSARTAN POTASSIUM 50 MG TAB PO SCH (11:14)
[2024-12-27] MEDS: NIFEdipine ER 30 MG TAB PO SCH (11:15)
[2024-12-27 13:00] VITALS: BP 114/78; PULSE 81; RESP 17; TEMP 97.7; O2SAT 96
--- NOTE | 2024-12-27 15:54 | DVHPN2 ---
Progress Note - Dictate Date Seen: December 27, 2024 Medical Necessity Reason Pt with a Central, PICC or Fol: No Subjective No new complaints Patient is tolerating a full liquid diet Abdominal pain is improved today Liver enzymes are trending down vital signs Vital Sign Date Time Temp Pulse Resp B/P (MAP) Pulse Ox O2 Delivery O2 Flow Rate FiO2 12/27/24 13:00 97.7 81 17 114/78 (90) 96 97.7 12/27/24 08:00 Room Air* 0 21 Total Intake and Output 12/26/24 12/26/24 12/27/24 15:00 23:00 07:00 Intake Total 500 ml 800 ml Balance 500 ml 800 ml medications Current Medications Medications Dose Ordered Sig/Shaji Route Start Time Stop Time Status Last Admin Dose Admin Pantoprazole Sodium 40 mg DAILY IV 12/26/24 10:00 12/27/24 11:13 40 MG Sodium Chloride 10 ml Q8HR IV 12/25/24 22:00 12/27/24 06:04 10 ML Acetaminophen 650 mg Q6HP PRN PO 12/25/24 16:15 Ondansetron HCl 4 mg Q4HP PRN IV 12/25/24 16:15 Enoxaparin Sodium 40 mg DAILY SC 12/26/24 10:00 12/27/24 11:13 40 MG Polyethylene Glycol 17 gm DAILYPRN PRN PO 12/26/24 12:30 Sennosides 8.6 mg HS PO 12/27/24 22:00 Losartan Potassium 100 mg DAILY PO 12/27/24 10:00 12/27/24 11:14 100 MG Nifedipine 60 mg DAILY PO 12/27/24 10:00 12/27/24 11:15 60 MG Sucralfate 1 gm BID@0600,2200 PO 12/26/24 22:00 12/27/24 06:01 1 GM objective Generally 61 years old male overweight, sitting on chair. No apparent distress HEENT-atraumatic, normocephalic Heart-regular rate and rhythm Lungs clear to auscultate bilaterally Abdomen soft nontender nondistended Musculoskeletal-no edema cyanosis Neuro-AO x3, no focal laboratory and microbiology Laboratory Tests 12/27/24 05:23 Test 12/27/24 05:23 Range/Units Serum Glucose 100 74-106 mg/dL Problems(with codes): (1) Intractable abdominal pain (2) Abdominal pain of unknown etiology (3) Elevated liver enzymes (4) Thickening of wall of gallbladder (5) Hepatic steatosis Prognosis Plan Patient is requesting a discharge home as his is sick His liver enzymes are trending down, hepatitis panel is negative Ultrasound had shown some gallbladder wall thickening with there were no gallstones, he has underlying hepatic steatosis Discharge planning as per hospitalist ; consider elective HIDA scan; low-fat diet, discontinue alcohol Patient can follow up with my office as an outpatient in two weeks for ongoing GI management Plan discussed with: Patient, Other ( Jhajj) DUANE GUEVARA MD December 27, 2024 15:54
[2024-12-27] MEDS ORDERED: PANT40T PO (16:41)
[2024-12-27] MEDS ORDERED: HYDR25TA4 PO (16:41)
[2024-12-27] MEDS ORDERED: CIPR-173 PO (16:41)
[2024-12-27] MEDS ORDERED: SUCR1SUS26 PO (16:41)
[2024-12-27] MEDS ORDERED: LOSA-534 PO (16:41)
[2024-12-27 16:46] VITALS: BP 140/82; PULSE 69; RESP 18; TEMP 98.3; O2SAT 97
[2024-12-27 17:35] VITALS: BP 120/79; PULSE 81; RESP 17; TEMP 36.8; O2SAT 96
--- NOTE | 2024-12-27 19:08 | DVHDSRES ---
Discharge Summary Date of Admission Resident Creating Document: EVELYN BLACKMAN RESIDENT December 25, 2024 at 16:01 Date of Discharge: December 27, 2024 Admitting Diagnosis 1. Intractable abdominal pain 2. Elevated liver enzymes 3. Hypokalemia Wounds: none Labs/Diagnostic Data: Laboratory Results Test 12/27/24 05:23 12/26/24 14:24 12/26/24 10:00 12/26/24 05:52 White Blood Count 5.9 10^3/uL (4.4-10.8) Red Blood Count 5.33 10^6/uL (4.5-5.90) Hemoglobin 16.0 g/dL (13.5-17.5) Hematocrit 45.9 % (41.0-53.0) Mean Corpuscular Volume 86.0 fL (80.0-100.0) Mean Corpuscular Hemoglobin 30.1 pg (28.0-32.0) Mean Corpuscular Hemoglobin Concent 35.0 g/dL (32.0-36.0) Red Cell Distribution Width 13.4 % (11.8-14.3) Platelet Count 214 10^3/uL (140-450) Mean Platelet Volume 7.8 fL (6.9-10.8) Neutrophils (%) (Auto) 59.6 % (37.0-80.0) Lymphocytes (%) (Auto) 29.7 % (10.0-50.0) Monocytes (%) (Auto) 7.2 % (0.0-12.0) Eosinophils (%) (Auto) 2.6 % (0.0-7.0) Basophils (%) (Auto) 0.9 % (0.0-2.0) Neutrophils # (Auto) 3.5 10 ^3/uL (1.6-8.6) Lymphocytes # (Auto) 1.8 10 ^3/uL (0.4-5.4) Monocytes # (Auto) 0.4 10 ^3/uL (0-1.3) Eosinophils # (Auto) 0.2 10 ^3/uL (0-0.8) Basophils # (Auto) 0.1 10 ^3/uL (0-0.2) Nucleated Red Blood Cells 0.0 % Sodium Level 137 mmol/L (136-145) Potassium Level 3.6 mmol/L (3.5-5.1) Chloride Level 97 mmol/L (98-107) Carbon Dioxide Level 31 mmol/L (20-31) Anion Gap 9 (5-15) Blood Urea Nitrogen 5 mg/dL (9-23) Creatinine 0.70 mg/dL (0.700-1.30) Glomerular Filtration Rate Calc 100 mL/min (>90) BUN/Creatinine Ratio 7.1 (10.0-20.0) Serum Glucose 100 mg/dL (74-106) Calcium Level 9.7 mg/dL (8.7-10.4) Total Bilirubin 1.7 mg/dL (0.2-1.0) Aspartate Amino Transferase (AST) 186 U/L (13-40) Alanine Aminotransferase (ALT) 509 U/L (7-40) Alkaline Phosphatase 147 U/L (46-116) Total Protein 6.7 g/dL (5.7-8.2) Albumin 4.3 g/dL (3.2-4.8) Ferritin 71.1 ng/mL (22-322) Prothrombin Time 10.9 sec (9.3-11.8) Prothrombin Time INR 1.03 (0.9-1.15) Activated Partial Thromboplast Time 30.2 SEC (24.5-34.5) Hemoglobin A1c 5.5 % A1C (<5.7) Direct Bilirubin 1.2 mg/dL (<0.3) Triglycerides Level 95 mg/dL (< 150) Cholesterol Level 189 mg/dL (< 200) LDL Cholesterol 115 mg/dL (< 100) HDL Cholesterol 55 mg/dL (40-59) Thyroid Stimulating Hormone (TSH) 1.15 uIU/mL (0.55-4.78) Acetaminophen Level < 2.0 UG/ML (10.0-20.0) Plasma/Serum Blood Alcohol < 3.0 mg/dL (<10) Hepatitis A IgM Antibody Negative Hepatitis B Surface Antigen Negative (Negative) Hepatitis B Core IgM Antibody Negative (Negative) Hepatitis C Antibody Negative (Negative) Test 12/25/24 11:14 12/25/24 10:31 Lipase 41 U/L (12-53) Urine Color Yellow (Yellow) Urine Clarity Clear (Clear) Urine pH 8.5 (5.0-9.0) Urine Specific [place] 1.012 (1.001-1.035) Urine Protein Negative (Negative) Urine Ketones Negative (Negative) Urine Blood Negative /uL (Negative) Urine Nitrite Negative (Negative) Urine Bilirubin Negative (Negative) Urine Urobilinogen Normal mg/dL (Negative) Urine Leukocyte Esterase Negative /uL (Negative) Urine RBC <1 /hpf (0 - 3) Urine Microscopic WBC /HPF (0-3) Urine Squamous Epithelial Cells None seen /hpf (<5) Urine Bacteria None seen /hpf (None Seen) Urine Glucose 1+ mg/dL (Normal) Other Laboratory Tests 12/27/24 05:23 Brief Hx & Hospital Course: HPI Patient is a 69-year-old male with a past medical history of hypertensive heart disease, gastritis, GERD, BPH, ?Colitis presented to the ED with a chief complaint of worsening abdominal pain for the last 3 days. Patient reported that for many years he has had pain in the left side of the abdomen mainly in the left lumbar in the left flank mostly after eating he specifically after eating greasy, fried food, meat but in the last 3 days he reported the pain in the left flank of the left lumbar area increased in intensity to about 8/10 associated with nausea, bloating and had 1 episode of vomiting which he induced himself because of feeling bloated. Patient denied diarrhea/constipation, fever, chills. He did not report of any unintentional weight loss recently, no history of travel. He reported that about a week ago he went to a restaurant where he had [place] but otherwise no food outside. Patient reported that he has been scheduled for a colonoscopy in March 2025. Past medical history: hypertensive heart disease, gastritis, GERD, BPH, ?Colitis Person surgical history: None Social history: Patient lives with family and denies smoking, alcohol, drug use Home medications: Losartan 100/hydrochlorothiazide 25, Protonix 40 mg, tamsulosin, finasteride Review of systems Patient came in with a chief complaint of abdominal pain associated with a 1 episode of vomiting and nausea with the pain getting worse after food especially fatty foods. CT abdomen pelvis without contrast was done which showed no gallstones, normal caliber gallbladder wall and no intra or extrahepatic biliary ductal dilation. Ultrasound of the right upper quadrant showed no cholelithiasis or gallbladder wall thickening measuring 7-8 mm and small amount of pericholecystic fluid which may account for the gallbladder wall thickening and hepatic steatosis. Patient was started on full liquid diet which he tolerated well. Patient is also found to have elevated transaminases and ALP with the option of the total bilirubin. Acute hepatitis panel was negative, patient did not have any history of alcohol use and plasma alcohol level were within normal limits. Lipid panel showed mild elevation of the LDL. Serum lipase was within normal limits. Serum ferritin level within normal limits. Gastroenterology were consulted who recommended with the patient getting a HIDA scan but since the patient is a requesting discharge he is instructed to follow up in the GI outpatient clinic in 2 weeks and for a possible elective HIDA scan later. Patient is discharged with oral antibiotics and is advised to limit the intake of fatty foods. Discharge plan Medications: Ciprofloxacin 500 mg b.i.d. for 7 days, Protonix 40 mg daily, sucralfate b.i.d., continue on the antihypertensive medication, BPH medication Follow up in the GI outpatient clinic in 2 weeks Consults/Reason for consult GI consultation for acute elevation of the transaminases Operations or Procedures none Condition at Discharge: Good Final Diagnosis/Problems List Acute on chronic abdominal pain Possible Acute gastritis Elevated transaminases with hepatic steatosis Hyperbilirubinemia Possible acalculous cholecystitis Constipation Hypertensive heart disease Discharge Disposition: Home Discharge Instruct/Medications Diet: See Comment Diet comment: Avoids caffiene, spicy foods and fried and oily foods Activity: No Restrictions, As Tolerated Follow Up/Referral: Follow up with the PCP in one week Follow up with GI in the outpatient clinic in 2 weeks Medications: as per EMR Discharge Statement: "Patient was advised to return to the ER or call 911 if any headaches, dizziness, shortness of breath, chest pain, abdominal pain, bleeding, fevers, or worsening of medical condition. Patient was counseled about treatment plan, medications, possible side effects, patientverbalized understanding. All questions were answered to the best of my ability. This discharge took greater then 30 minutes in planning, reviewing documentation, counseling the patient, and discussing with other team members." ASSESSMENT ASSESSMENT Assessment Acute on chronic abdominal pain Possible Acute gastritis Elevated transaminases with hepatic steatosis Hyperbilirubinemia Possible acalculous cholecystitis Constipation Hypertensive heart disease Date of Service: December 27, 2024 Billing Provider: MIKE CHILEL MD Common Visit Codes: 16463-MFN/OBS DISCH DAY >30min EVELYN BLACKMAN December 27, 2024 19:08 MIKE CHILEL MD December 27, 2024 22:53
[2024-12-27] MEDS ORDERED: SENNA 8.6 MG TAB PO SCH (22:00)
== END 2024-12-27 18:46 | disposition home or self-care (01) | DRG 392 ==
LOC: ER 10:21 → OVERFLOW 16:01 → EAST 23:29
PROVIDERS: ADMIT Internal Medicine; ATTEND Emergency Medicine
DX: K29.00 Acute gastritis without bleeding (principal); K81.9 Cholecystitis, unspecified; K76.0 Fatty (change of) liver, not elsewhere classified; E87.6 Hypokalemia; E80.6 Other disorders of bilirubin metabolism; K21.9 Gastro-esophageal reflux disease without esophagitis; I11.9 Hypertensive heart disease without heart failure; K59.00 Constipation, unspecified; R74.01 Elevation of levels of liver transaminase levels; R79.89 Other specified abnormal findings of blood chemistry; N40.0 Benign prostatic hyperplasia without lower urinary tract symptoms; Z79.899 Other long term (current) drug therapy; Z82.0 Family history of epilepsy and other diseases of the nervous system
CPT/HCPCS: 36415; 71045; 74176; 76705; 80053; 80061; 80074; 80320; 80329; 81001; 82248; 82728; 83036; 83690; 84443; 85025; 85610; 85730; 86038; 93005; 96374; 96375; G0378; J2470; J3490